=== PATIENT | female | born 1980 | race Caucasian/White ===

== ENCOUNTER 2019-02-19 03:22 | Emergency (ER) | payer OTHER ==
[~2019-02-19] VITALS: Ht 152.4 cm; Wt 70.7 kg
[~2019-02-19 03:22] MED LIST: CEPH-443 PO; CYCL10TA7 PO; IBUP800T48 PO; NITR-58 PO; PHEN-537 PO
[2019-02-19 03:26] VITALS: Ht 152.4 cm; Wt 70.7 kg
[2019-02-19] MEDS ORDERED: PHENAZOPYRIDINE 100 MG TAB PO ONE (04:30)
[2019-02-19 04:33] VITALS: BP 129/86; PULSE 78; RESP 16
== END 2019-02-19 04:48 | disposition home or self-care (01) ==
LOC: FTE 03:22
DX: N30.01 Acute cystitis with hematuria (principal)
CPT/HCPCS: 81003; 81025; 87086; Z7502; Z7610; 99283